=== PATIENT | male | born 1980 | race Caucasian/White ===

== ENCOUNTER 2016-09-18 18:36 | Emergency (ER) | payer OTHER ==
[2016-09-18 18:55] VITALS: BP 115/83; PULSE 56; RESP 16; TEMP 98.2; O2SAT 97
[2016-09-18] MEDS ORDERED: DOXYCYCLINE HYCLATE 100 MG CAP/TAB PO ONE (19:29)
--- NOTE | 2016-09-18 19:30 | UCPHY ---
H & P Time Seen by Provider: 09/18/16 19:19 Patient Type: Established HPI/ROS: This patient complains of foot infection. He explains that he has a cracked skin between the 4th and 5th toe on the left foot. Today while snowboarding no some discomfort to the dorsum of the foot adjacent to this and upon inspection realize there is some erythema to the skin. He describes discomfort as 3/10. He has had cracked skin before his feet but never a cellulitis before. ROS: No fevers chills or other constitutional symptoms. Neuro: No numbness tingling. Musculoskeletal: No recent trauma to the foot. GI: No nausea vomiting cardiovascular: No complaints 7 point ROS is otherwise negative. Past Medical/Surgical History: Otherwise healthy Smoking Status: Former smoker Physical Exam: Physical Exam Vital signs are normal. General: No acute distress HEENT: Atraumatic. Eyes: Pupils equal and react to light. Extraocular motions are intact. Lungs: No respiratory distress. Cardiac: Brisk capillary refill is intact throughout. Pulses are 2+ and symmetric in the affected extremity. Skin: There is a skin disruption between the 4th 5th toes left foot likely secondary to localized fungal infection. This is not a full-thickness crack in the skin but there is surrounding erythema at the dorsum of the foot extending 4 cm between the 4th and 5th metatarsal dorsally with no fluctuance. No bony tenderness. No toe involvement. Neuro: Alert and oriented x3 with no sensorimotor deficits. Initial differential diagnosis: Tinea pedis with localized bacterial cellulitis. Doubt atopic dermatitis Constitutional: Initial Vital Signs Temperature (C) 36.8 C 09/18/16 18:52 Heart Rate 56 L 09/18/16 18:52 Respiratory Rate 16 09/18/16 18:52 Blood Pressure 115/83 H 09/18/16 18:52 O2 Sat (%) 97 09/18/16 18:52 O2 Delivery Mode Room Air Allergies/Adverse Reactions: No Known Allergies Allergy (Unverified 09/18/16 18:50) Home Medications: Medication Instructions Recorded Doxycycline Hyclate [Vibramycin 100 mg PO BID #20 cap 09/18/16 100 MG (*)] MDM/Departure - MDM Medications Given: Discontinued Medications Doxycycline Hyclate (Doxycycline Hyclate) 100 mg PO EDNOW ONE PRN Reason: Protocol Stop: 09/18/16 19:30 Last Admin: 09/18/16 19:45 Dose: 100 mg ED Course/Re-evaluation: The wound cultures obtained from the crack in the skin. Doxycycline p. o. for localized cellulitis. I counseled patient regarding this. He does not have evidence of a systemic toxicity/sepsis. The cellulitis findings are very minimal. He is immunocompetent - Depart Disposition: Home, Routine, Self-Care Clinical Impression: Cellulitis of foot without toes, left Condition: Good Instructions: Cellulitis (ED) Additional Instructions: Diagnosis: Left foot cellulitis Plan: Epsom salt soaks twice a day with warm water until symptoms resolve. If the skin gets dry, then switch to warm water soap soaks. Doxycycline antibiotic Yogurt while doxy psych clean or probiotic to prevent diarrhea Wear sunscreen while on this medication as it will make him more prone to sunburn. Return for any significant worsening despite treatment plan Be sure to dry in between or tones after bathing each day. Prescriptions: Doxycycline Hyclate [Vibramycin 100 MG (*)] 100 mg PO BID #20 cap Referrals: NONE *PRIMARY CARE P,. [Primary Care Provider] - As per Instructions - PQRS PQRS Measurement: NA
== END 2016-09-18 19:45 | disposition home or self-care (01) ==
LOC: CED 18:36
DX: L03.116 Cellulitis of left lower limb (principal); Z87.891 Personal history of nicotine dependence
CPT/HCPCS: 99214-PO; G0463-PO